=== PATIENT | male | born 1955 | race Caucasian/White ===

== ENCOUNTER 2020-05-18 04:57 | Emergency (ER) | payer OTHER, MEDICARE ==
[~2020-05-18] VITALS: Ht 185.4 cm; Wt 81.7 kg
[~2020-05-18 04:57] MED LIST: CYAN500 PO; CYCL10 PO; DILT120 PO; DIPH50 PO; FISH OIL 1,001000 MG PO; FOLI1 PO; LISI20 PO; MELATONIN5 M1 PO; PANT40 PO; QUET25 PO; Thiamine HCl100 MG PO; XARELTO20 MG PO
== END 2020-05-18 06:37 | disposition home or self-care (01) ==
LOC: ER 04:57
DX: Z48.01 Encounter for change or removal of surgical wound dressing (principal); S59.901A Unspecified injury of right elbow, initial encounter; I48.91 Unspecified atrial fibrillation; F32.9 Major depressive disorder, single episode, unspecified; Z91.011 Allergy to milk products; Z91.02 Food additives allergy status; Z88.8 Allergy status to other drugs, medicaments and biological substances; Z79.82 Long term (current) use of aspirin; Z79.899 Other long term (current) drug therapy; Z87.891 Personal history of nicotine dependence; X58.XXXA Exposure to other specified factors, initial encounter
CPT/HCPCS: 99284

== ENCOUNTER 2020-05-22 14:52 | Emergency (ER) | payer OTHER, MEDICARE ==
[~2020-05-22] VITALS: Ht 185.4 cm; Wt 81.7 kg
== END 2020-05-22 18:10 | disposition home or self-care (01) ==
LOC: ER 14:52
DX: F22 Delusional disorders (principal); F20.9 Schizophrenia, unspecified; I48.91 Unspecified atrial fibrillation; F32.9 Major depressive disorder, single episode, unspecified; I50.30 Unspecified diastolic (congestive) heart failure; Z79.01 Long term (current) use of anticoagulants; Z79.899 Other long term (current) drug therapy; Z91.011 Allergy to milk products; Z91.02 Food additives allergy status; Z88.6 Allergy status to analgesic agent; Z91.018 Allergy to other foods; Z88.8 Allergy status to other drugs, medicaments and biological substances; Z87.891 Personal history of nicotine dependence
CPT/HCPCS: 99284; Q3014

== ENCOUNTER 2021-03-14 08:55 | Observation (INO) | payer OTHER ==
[~2021-03-14] VITALS: Ht 188 cm; Wt 84.4 kg
[~2021-03-14 08:55] MED LIST changes: +CLOP75 PO; +LANOXIN125 MCG PO
[2021-03-14 09:24] LABS: BASOPHILS ABSOLUTE AUTO 0.05 K/mm3 (0.00-0.23); BASOPHILS PERCENT AUTO 1 % (0-2); EOSINOPHILS PERCENT AUTO 3 % (0-6); Hematocrit 44.2 % (37.0-53.0); Hemoglobin 14.7 g/dL (13.5-17.5); IMMATURE GRAN ABSOLUTE AUTO 0.03 K/mm3 (0.00-0.10); IMMATURE GRAN PERCENT AUTO 0 % (0-1); LYMPHOCYTES ABSOLUTE AUTO 1.38 K/mm3 (0.84-5.20); LYMPHOCYTES PERCENT AUTO 15 % (21-46); MONOCYTES ABSOLUTE AUTO 0.65 K/mm3 (0.16-1.47); MONOCYTES PERCENT AUTO 7 % (4-13); Mean Corpuscular HGB Conc 33.3 g/dL (31.5-36.5); Mean Corpuscular Volume 99 fL (80-100); Mean Platelet Volume 9.2 fL (9.1-12.4); NEUTROPHILS ABSOLUTE AUTO 6.65 K/mm3 (1.96-9.15); NEUTROPHILS PERCENT AUTO 73 % (41-73); Platelet Count 277 K/mm3 (150-400); RDW Coefficient Variation 13.2 % (11.7-14.2); RDW Standard Deviation 48.2 fL (35.1-46.3); Red Blood Cell Count 4.46 M/mm3 (4.30-5.90); White Blood Cell Count 9.06 K/mm3 (4.00-11.30)
[2021-03-14 09:45] LABS: Alanine Aminotransfer (ALT/SGP 40 U/L (12-78); Albumin, Blood 3.2 g/dL (3.4-5.0); Albumin/Globulin Ratio 0.9 (0.8-1.8); Alk Phos 82 U/L (50-136); Anion Gap 3 mmol/L (6-16); Aspartate Aminotrans (AST/SGOT 23 U/L (12-37); Bilirubin, Total 0.6 mg/dL (0.1-1.0); Blood Urea Nitrogen 10 mg/dL (8-24); Bun/Creatinine Ratio 10.9 (12.0-20.0); CO2, Blood 26 mmol/L (21-32); Calcium, Blood 8.8 mg/dL (8.5-10.1); Chloride, Blood 109 mmol/L (98-108); Creatinine, Blood 0.92 mg/dL (0.60-1.20); Ethanol (Alcohol), Blood, Med <3 mg/dL; Globulin, Blood 3.4 g/dL (2.2-4.0); Glomerular Filtration Rate >60 (60-); Glucose, Blood 105 mg/dL (70-99); Potassium, Blood 4.3 mmol/L (3.5-5.5); Sodium, Blood 138 mmol/L (136-145); Total Protein, Blood 6.6 g/dL (6.4-8.2); Troponin I <0.015 ng/mL (0.000-0.040)
[2021-03-14] MEDS ORDERED: ATOR80 PO (14:02)
[2021-03-14] MEDS ORDERED: IPRAT-ALBUT 0.5-3 ML NEB (14:02)
[2021-03-14] MEDS ORDERED: LANOXIN125 MCG PO (14:02)
[2021-03-14] MEDS ORDERED: DILTIAZEM 24HR240 M6 PO (14:03)
[2021-03-14] MEDS ORDERED: FOLI1 PO (14:03)
[2021-03-14] MEDS ORDERED: XARELTO20 MG PO (14:03)
[2021-03-14] MEDS ORDERED: Hair, Skin & N1 EACH PO (14:03)
[2021-03-14] MEDS ORDERED: B-1100 M1 PO (14:04)
[2021-03-14] MEDS ORDERED: Vitamin B Comple1 EA PO (14:04)
[2021-03-14 15:19] LABS: SARS-Cov-2 (COVID-19) PCR, MMC NEGATIVE (NEGATIVE)
--- NOTE | 2021-03-14 15:24 | NUR ---
RECEIED REPORT FROM ANKIT WIGGINS @ 4034. PATIENT TO BE TRANSFERED TO ROOM 357.
[2021-03-14 16:00] LABS: U Amphetamine Screen Not Detected; U Barbituate Screen Not Detected; U Benzodiazapine Screen Not Detected; U Buprenorphine Screen Not Detected; U Cannabinoids Screen DETECTED; U Cocaine Screen Not Detected; U Methadone Screen Not Detected; U Methamphetamine Screen Not Detected; U Opiates Screen Not Detected; U Oxycodone Screen Not Detected; U Phencyclidine Screen Not Detected; U Propoxyphene Screen Not Detected
--- NOTE | 2021-03-14 16:00 | NUR ---
Echocardiogram completed.
--- NOTE | 2021-03-14 18:18 | NUR ---
PATIENT ARRIVED TO ROOM 357 AND WAS TRANSFERED TO HOSPITAL BED BY THE ASSIST OF FOUR HOSPITAL STAFF MEMBERS. PATIENT IS VERY IRRITABLE AND DOES NOT LIKE TO BE BOTHERED. CAME UP FROM THE ER WITH 10F PEDIATRIC SHAW CATHETER IN PLACE; SEEMS TO BE SOME OBSTRUCTION PREVENTING THE ABILITY TO PLACE AN ADULT CATHETER. PATIENT C/O PAIN TO PENIS WITH THE SLIGHTEST OF TOUCH, EVEN THE TOUCH OF A BLANKET BEING PLACED ON HIM. COMPLETED ADMISSION ASSESSMENT AND MED REC WITH THE ASSISTANCE OF PATIENT. PATIENT STATES HE DOES NOT HAVE A HOME AT THIS TIME. IV FLUIDS RUNNING PER EMAR.
[2021-03-15 04:43] LABS: BASOPHILS ABSOLUTE AUTO 0.07 K/mm3 (0.00-0.23); BASOPHILS PERCENT AUTO 1 % (0-2); EOSINOPHILS ABSOLUTE AUTO 0.22 K/mm3 (0.00-0.68); EOSINOPHILS PERCENT AUTO 2 % (0-6); Hematocrit 45.5 % (37.0-53.0); Hemoglobin 15.1 g/dL (13.5-17.5); IMMATURE GRAN ABSOLUTE AUTO 0.05 K/mm3 (0.00-0.10); IMMATURE GRAN PERCENT AUTO 1 % (0-1); LYMPHOCYTES ABSOLUTE AUTO 1.51 K/mm3 (0.84-5.20); LYMPHOCYTES PERCENT AUTO 16 % (21-46); MONOCYTES ABSOLUTE AUTO 0.66 K/mm3 (0.16-1.47); MONOCYTES PERCENT AUTO 7 % (4-13); Mean Corpuscular HGB 32.2 pg (26.0-34.0); Mean Corpuscular HGB Conc 33.2 g/dL (31.5-36.5); Mean Corpuscular Volume 97 fL (80-100); Mean Platelet Volume 9.4 fL (9.1-12.4); NEUTROPHILS ABSOLUTE AUTO 7.14 K/mm3 (1.96-9.15); NEUTROPHILS PERCENT AUTO 74 % (41-73); Platelet Count 271 K/mm3 (150-400); RDW Coefficient Variation 13.3 % (11.7-14.2); RDW Standard Deviation 47.8 fL (35.1-46.3); Red Blood Cell Count 4.69 M/mm3 (4.30-5.90); White Blood Cell Count 9.65 K/mm3 (4.00-11.30)
[2021-03-15 05:11] LABS: Alanine Aminotransfer (ALT/SGP 30 U/L (12-78); Albumin, Blood 2.9 g/dL (3.4-5.0); Albumin/Globulin Ratio 0.9 (0.8-1.8); Alk Phos 88 U/L (50-136); Anion Gap 4 mmol/L (6-16); Aspartate Aminotrans (AST/SGOT 15 U/L (12-37); Bilirubin, Total 0.7 mg/dL (0.1-1.0); Blood Urea Nitrogen 11 mg/dL (8-24); Bun/Creatinine Ratio 12.8 (12.0-20.0); CO2, Blood 25 mmol/L (21-32); Calcium, Blood 8.5 mg/dL (8.5-10.1); Chloride, Blood 111 mmol/L (98-108); Creatinine, Blood 0.86 mg/dL (0.60-1.20); Globulin, Blood 3.4 g/dL (2.2-4.0); Glomerular Filtration Rate >60 (60-); Glucose, Blood 76 mg/dL (70-99); Magnesium, Blood 1.9 mg/dL (1.6-2.4); Potassium, Blood 4.1 mmol/L (3.5-5.5); Sodium, Blood 140 mmol/L (136-145); Total Protein, Blood 6.3 g/dL (6.4-8.2)
--- NOTE | 2021-03-15 05:33 | NUR ---
END OF SHIFT REPORT: Pt still complaining of weakness, especially in BLE. He states that he cannot move his legs. pt can move arms and can wiggle toes. he has feeling in BLE and BUE. Urinary catheter draining well. pt complaining of burning pain under his penis area, likely from the britton insertion attempts. Pt says he does not want any pain medicine. heat alternative therapy provided, pt tolerated for about 2 hours and asks totake off. pt states that his bladder feels full. this nurse bladder scanned him and there was 20ml in there. pt resting at this time.
--- NOTE | 2021-03-15 12:52 | NUR ---
BUILDING ARCHITECTURAL DESIGNER CALLED AND REPORTED PT HEART RATE AFIB IN THE 150'S. PO CARDIZEM AND DIGOXIN GIVEN AT 1208. PT CURRENTLY SITTING UP IN CHAIR EATING LUNCH, IN NO ACUTE DISTRESS. CALLED AND SPOKE WITH DR BENAVIDES AND ORDERED RECEIVED FOR CARDIZEM 10 MG IV X1 NOW.
--- NOTE | 2021-03-15 12:59 | NUR ---
WENT IN TO ADMINISTER IV CARDIZEM, [facility] REPORTS RATE NOW AT 110. WILL HOLD IV CARDIZEM AT THIS TIME AND CONTINUE TO MONITOR.
--- NOTE | 2021-03-15 15:59 | NUR ---
0842 FINISH MIXER NOTIFIED RN THAT PT WAS C/O CHEST PAIN. WENT IN THE ROOM AND PT HOLDING CHEST WITH GRIMACE DESCRIBING MIDSTERNAL CRUSHING CHEST PAIN. STATES IT HAPPENED RIGHT AFTER SPEECH GAVE HIM FOOD AND HE LAID DOWN. ELEVATED HOB. HEARD EXP WHEEZE L MID LUNG FIELD. CALLED DR BENAVIDES TO NOTIFY. OBTAINED EKG, AND TROPONIN ORDERED. MEDICATED WITH PROTONIX AND TUMS. VSS, SATS 95% ROOM AIR. STATES INCREASED PAIN WITH DEEP INSP. 20 MIN AFTER PROTONIX, PT IS JOVIAL AND STATES PAIN IS HALF WHAT IT USED TO BE. AT 0915 PT STATES PAIN IS RESOLVED. TROP. NEGATIVE. WILL CONT TO MERCEDES.
--- NOTE | 2021-03-15 18:56 | NUR ---
SUMMARY- PT ALERT TO SELF, PLACE CIRCUMSTANCE. NEURO IMPROVED, VEE ZAMBRANO, UP IN CHAIR MOST OF THE DAY. STEADY GAIT, BUT STATES HE HAS A HARD TIME "TELLING WHICH WAY IS UP; DISORIENTED". HAS HAD NO ADDITIONAL CHEST PAIN TODAY. TOLERATING FOOD AND FLUIDS. VALERIA ARTHUR, VOIDED 350 AROUND 1730. WILL REPORT TO DAWNA WIGGINS.
--- NOTE | 2021-03-16 02:30 | NUR ---
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 Room air PT denies chest pain or acute distress. 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 Homeless PT states was [employer]. Says [facility] unable to provide housing assist for several years. 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 PT has been noncompliant with RX off meds for his AFIB. He refuses IV fluid NS scheduled at 100 ml hr. He threatens to pull his IV. 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 He sites academic excellence with HS grad at age 9 & Gov employment age 14. Says multi million dollar estate from he encouraged pending & in probate. PT has tele AFIB rate 77. Full code status, PT has hx of cardiac ablation & stent. Echo shows EF 55 to 60 %. carotid duplex done. MRI of brain shows no acute recent event. PT has MRI of cervical spine due to gen weakness. Multilevel severe deg disease with spinal canal stenosis & multilevel foraminal stenosis. HX of multiple medication allergies. Alert to self surrounding PT moving all extremities baseline RT le weakness, & current LT UE neuropathy. Has PT/ OT/ST ordered. PT says baseline he has inability to tolearate head of bed up. No attempts to get out of bed unassisted. No current complaints, Will make SW referral for homeless [place] with mental problems with hx of tx at [facility] for ongoing problems.
[2021-03-16 05:03] LABS: CHOL/HDL RATIO 5.8; Cholesterol 138 mg/dL (50-200); HDL Cholesterol 24 mg/dL (>39); LDL/HDL RATIO 3.9; Low Density Lipoprotein Chol 94 mg/dL (0-110); Triglycerides 99 mg/dL (30-160); Very Low Density Lipoprot Chol 19 mg/dL (6-32)
[2021-03-16 08:37] LABS: Hematocrit 41.5 % (37.0-53.0); Hemoglobin 13.9 g/dL (13.5-17.5)
[2021-03-16 09:15] LABS: Albumin, Blood 2.6 g/dL (3.4-5.0); Anion Gap 7 mmol/L (6-16); Blood Urea Nitrogen 12 mg/dL (8-24); Bun/Creatinine Ratio 14.7 (12.0-20.0); CO2, Blood 23 mmol/L (21-32); Calcium, Blood 8.5 mg/dL (8.5-10.1); Chloride, Blood 110 mmol/L (98-108); Creatinine, Blood 0.82 mg/dL (0.60-1.20); Glomerular Filtration Rate >60 (60-); Glucose, Blood 123 mg/dL (70-99); Phosphorus, Blood 3.3 mg/dL (2.5-4.9); Potassium, Blood 3.7 mmol/L (3.5-5.5); Sodium, Blood 140 mmol/L (136-145)
[2021-03-16] MEDS ORDERED: TAMS.4ER PO (11:31)
[2021-03-16] MEDS ORDERED: PANT20 PO (11:33)
--- NOTE | 2021-03-16 12:32 | NUR ---
MR PRAVIN CHAVEZ IS ALERT ORIENTED X 4,MR COSTELLO DENIES PAIN,N/V AND SOB.MR COSTELLO IS DISCHARGE,MEDS WAS FAXED TO THE VET,BUT MR COSTELLO REFUSED TO LEAVE, SECURITY WAS CALLED TO HELP SMOOTH THE ISSUES BUT MR COSTELLO STILL REFUSED TO LEAVE AND REFUSED TO COORPORATE WITH SECURITY, MR COSTELLO CALLED 911,AN OFFICER ARRIVED 20 MINUTES LATER, PT ONLY SPOKE TO THE OFFICER, PT WAS PRESENTED WITH DISCHARGE PAPER AND DISCHARGE SUMMARY AND PT REFUSED TO SIGN THE DISCHARGE PAPER, PT BEING ESCORTED OUT BY THE OFFICER AND SECURITY.
== END 2021-03-16 12:24 | disposition home health service (06) ==
LOC: ER 08:55 → MEDS 08:56
PROVIDERS: Emergency Medicine; Internal Medicine; Nurse Practitioner Acute Care; ADMIT Internal Medicine
DX: R53.1 Weakness (principal); I48.20 Chronic atrial fibrillation, unspecified; R33.9 Retention of urine, unspecified; F20.9 Schizophrenia, unspecified; F84.0 Autistic disorder; I25.10 Atherosclerotic heart disease of native coronary artery without angina pectoris; I25.2 Old myocardial infarction; I73.9 Peripheral vascular disease, unspecified; I70.8 Atherosclerosis of other arteries; I77.9 Disorder of arteries and arterioles, unspecified; I10 Essential (primary) hypertension; K21.9 Gastro-esophageal reflux disease without esophagitis; F17.210 Nicotine dependence, cigarettes, uncomplicated; M48.02 Spinal stenosis, cervical region; Z79.01 Long term (current) use of anticoagulants; Z91.14 Patient's other noncompliance with medication regimen; Z91.011 Allergy to milk products; Z91.018 Allergy to other foods; Z91.013 Allergy to seafood; Z88.8 Allergy status to other drugs, medicaments and biological substances; Z59.0 Homelessness; Z95.5 Presence of coronary angioplasty implant and graft; Z86.73 Personal history of transient ischemic attack (TIA), and cerebral infarction without residual deficits; Z20.822 Contact with and (suspected) exposure to COVID-19
CPT/HCPCS: 36415; 51702; 70450; 70551; 72156; 76770; 80053; 80061; 80069; 82550; 83735; 83880; 84484; 85014; 85018; 85025; 92610; 93005; 93010; 93306; 93880; 96372; 96374; 97163; 97166; 97530; 97535; 99285-25; A9270; A9579; C9113; G0378; G0480; J1650; J7030; U0004

== ENCOUNTER 2022-08-23 18:10 | Emergency (ER) | payer OTHER ==
[~2022-08-23] VITALS: Ht 185.4 cm; Wt 86.2 kg
[~2022-08-23 18:10] MED LIST changes: +ATOR80 PO; +B-1100 M1 PO; +DILTIAZEM 24HR240 M6 PO; +Hair, Skin & N1 EACH PO; +IPRAT-ALBUT 0.5-3 ML NEB; +PANT20 PO; +TAMS.4ER PO; +Vitamin B Comple1 EA PO
[2022-08-23 18:35] LABS: BASOPHILS ABSOLUTE AUTO 0.05 K/mm3 (0.00-0.23); BASOPHILS PERCENT AUTO 1 % (0-2); EOSINOPHILS ABSOLUTE AUTO 0.22 K/mm3 (0.00-0.68); EOSINOPHILS PERCENT AUTO 3 % (0-6); Hemoglobin 15.1 g/dL (13.5-17.5); IMMATURE GRAN ABSOLUTE AUTO 0.02 K/mm3 (0.00-0.10); IMMATURE GRAN PERCENT AUTO 0 % (0-1); LYMPHOCYTES ABSOLUTE AUTO 2.28 K/mm3 (0.84-5.20); LYMPHOCYTES PERCENT AUTO 29 % (21-46); MONOCYTES ABSOLUTE AUTO 0.49 K/mm3 (0.16-1.47); MONOCYTES PERCENT AUTO 6 % (4-13); Mean Corpuscular HGB 32.5 pg (26.0-34.0); Mean Corpuscular HGB Conc 34.3 g/dL (31.5-36.5); Mean Corpuscular Volume 95 fL (80-100); Mean Platelet Volume 9.1 fL (9.1-12.4); NEUTROPHILS ABSOLUTE AUTO 4.83 K/mm3 (1.96-9.15); NEUTROPHILS PERCENT AUTO 61 % (41-73); Platelet Count 275 K/mm3 (150-400); RDW Coefficient Variation 12.7 % (11.7-14.2); RDW Standard Deviation 44.5 fL (35.1-46.3); Red Blood Cell Count 4.64 M/mm3 (4.30-5.90); White Blood Cell Count 7.89 K/mm3 (4.00-11.30)
[2022-08-23 19:03] LABS: Albumin, Blood 3.6 g/dL (3.4-5.0); Albumin/Globulin Ratio 0.9 (0.8-1.8); Bilirubin, Total 0.3 mg/dL (0.1-1.0); Calcium, Blood 9.5 mg/dL (8.5-10.1); Creatinine, Blood 0.82 mg/dL (0.60-1.20); Globulin, Blood 3.9 g/dL (2.2-4.0); Potassium, Blood 4.5 mmol/L (3.5-5.5); Total Protein, Blood 7.5 g/dL (6.4-8.2)
== END 2022-08-23 20:10 | disposition home or self-care (01) ==
LOC: ER 18:10
PROVIDERS: Emergency Medicine
DX: K64.4 Residual hemorrhoidal skin tags (principal); I48.91 Unspecified atrial fibrillation; I10 Essential (primary) hypertension; F84.0 Autistic disorder; Z91.011 Allergy to milk products; Z91.013 Allergy to seafood; Z88.8 Allergy status to other drugs, medicaments and biological substances; Z91.018 Allergy to other foods; Z79.899 Other long term (current) drug therapy; Z79.01 Long term (current) use of anticoagulants
CPT/HCPCS: 36415; 80053; 85025; 99283

== ENCOUNTER 2022-11-24 15:38 | Emergency (ER) | payer OTHER ==
[~2022-11-24] VITALS: Ht 185.4 cm; Wt 86.2 kg
[2022-11-24 15:59] LABS: BASOPHILS ABSOLUTE AUTO 0.05 K/mm3 (0.00-0.23); BASOPHILS PERCENT AUTO 1 % (0-2); EOSINOPHILS ABSOLUTE AUTO 0.13 K/mm3 (0.00-0.68); EOSINOPHILS PERCENT AUTO 2 % (0-6); Hematocrit 44.3 % (37.0-53.0); Hemoglobin 14.9 g/dL (13.5-17.5); IMMATURE GRAN ABSOLUTE AUTO 0.02 K/mm3 (0.00-0.10); IMMATURE GRAN PERCENT AUTO 0 % (0-1); LYMPHOCYTES ABSOLUTE AUTO 1.68 K/mm3 (0.84-5.20); LYMPHOCYTES PERCENT AUTO 31 % (21-46); MONOCYTES ABSOLUTE AUTO 0.46 K/mm3 (0.16-1.47); MONOCYTES PERCENT AUTO 9 % (4-13); Mean Corpuscular HGB Conc 33.6 g/dL (31.5-36.5); Mean Corpuscular Volume 95 fL (80-100); Mean Platelet Volume 9.4 fL (9.1-12.4); NEUTROPHILS ABSOLUTE AUTO 3.05 K/mm3 (1.96-9.15); NEUTROPHILS PERCENT AUTO 57 % (41-73); Platelet Count 217 K/mm3 (150-400); RDW Coefficient Variation 13.9 % (11.7-14.2); RDW Standard Deviation 48.9 fL (35.1-46.3); Red Blood Cell Count 4.66 M/mm3 (4.30-5.90); White Blood Cell Count 5.39 K/mm3 (4.00-11.30)
[2022-11-24 16:19] LABS: Albumin, Blood 3.7 g/dL (3.4-5.0); Albumin/Globulin Ratio 0.9 (0.8-1.8); Bilirubin, Total 0.6 mg/dL (0.1-1.0); Bun/Creatinine Ratio 20.4 (12.0-20.0); Calcium, Blood 9.1 mg/dL (8.5-10.1); Creatinine, Blood 0.78 mg/dL (0.60-1.20); Potassium, Blood 4.2 mmol/L (3.5-5.5); Total Protein, Blood 7.7 g/dL (6.4-8.2)
[2022-11-24 18:25] LABS: Digoxin (Lanoxin) 0.53 ug/mL (0.80-2.00)
[2022-11-24 18:45] VITALS: BP 151/96
== END 2022-11-24 19:17 | disposition home or self-care (01) ==
LOC: ER 15:38
PROVIDERS: Emergency Medicine; Physician Assistant
DX: R42 Dizziness and giddiness (principal); I10 Essential (primary) hypertension; Z91.013 Allergy to seafood; Z91.011 Allergy to milk products; Z91.018 Allergy to other foods; Z88.6 Allergy status to analgesic agent; Z88.8 Allergy status to other drugs, medicaments and biological substances; Z79.01 Long term (current) use of anticoagulants
CPT/HCPCS: 71046; 80053; 80162; 83690; 83880; 84443; 84484; 85025; A9270

== ENCOUNTER 2023-06-06 11:47 | Emergency (ER) | payer OTHER, MEDICARE ==
[~2023-06-06] VITALS: Ht 185.4 cm; Wt 81.7 kg
[2023-06-06 12:49] LABS: BASOPHILS ABSOLUTE AUTO 0.04 K/mm3 (0.00-0.23); BASOPHILS PERCENT AUTO 0 % (0-2); EOSINOPHILS ABSOLUTE AUTO 0.03 K/mm3 (0.00-0.68); EOSINOPHILS PERCENT AUTO 0 % (0-6); Hematocrit 49.5 % (37.0-53.0); Hemoglobin 16.6 g/dL (13.5-17.5); IMMATURE GRAN ABSOLUTE AUTO 0.05 K/mm3 (0.00-0.10); IMMATURE GRAN PERCENT AUTO 0 % (0-1); LYMPHOCYTES ABSOLUTE AUTO 1.07 K/mm3 (0.84-5.20); LYMPHOCYTES PERCENT AUTO 8 % (21-46); MONOCYTES ABSOLUTE AUTO 0.54 K/mm3 (0.16-1.47); MONOCYTES PERCENT AUTO 4 % (4-13); Mean Corpuscular HGB 31.6 pg (26.0-34.0); Mean Corpuscular HGB Conc 33.5 g/dL (31.5-36.5); Mean Corpuscular Volume 94 fL (80-100); Mean Platelet Volume 9.2 fL (9.1-12.4); NEUTROPHILS ABSOLUTE AUTO 11.93 K/mm3 (1.96-9.15); NEUTROPHILS PERCENT AUTO 87 % (41-73); Platelet Count 246 K/mm3 (150-400); RDW Coefficient Variation 13.2 % (11.7-14.2); RDW Standard Deviation 45.7 fL (35.1-46.3); Red Blood Cell Count 5.25 M/mm3 (4.30-5.90); White Blood Cell Count 13.66 K/mm3 (4.00-11.30)
[2023-06-06 13:03] LABS: Albumin, Blood 3.9 g/dL (3.4-5.0); Albumin/Globulin Ratio 0.9 (0.8-1.8); Bilirubin, Total 0.8 mg/dL (0.1-1.0); Bun/Creatinine Ratio 15.8 (12.0-20.0); Calcium, Blood 9.4 mg/dL (8.5-10.1); Creatinine, Blood 0.76 mg/dL (0.60-1.20); Globulin, Blood 4.5 g/dL (2.2-4.0); Potassium, Blood 3.9 mmol/L (3.5-5.5); Total Protein, Blood 8.4 g/dL (6.4-8.2)
[2023-06-06] MEDS ORDERED: DIGOX125 MC1 PO (15:21)
[2023-06-06 18:56] LABS: Magnesium, Blood 1.7 mg/dL (1.6-2.4)
[2023-06-06 19:03] LABS: Digoxin (Lanoxin) 0.55 ug/mL (0.80-2.00)
[2023-06-06 20:18] LABS: U Amphetamine Screen Not Detected; U Barbituate Screen Not Detected; U Benzodiazapine Screen Not Detected; U Buprenorphine Screen Not Detected; U Cannabinoids Screen DETECTED; U Cocaine Screen Not Detected; U Methadone Screen Not Detected; U Methamphetamine Screen Not Detected; U Opiates Screen Not Detected; U Oxycodone Screen Not Detected; U Phencyclidine Screen Not Detected
[2023-06-06 20:35] VITALS: BP 131/95
== END 2023-06-06 20:37 | disposition home or self-care (01) ==
LOC: ER 11:47
PROVIDERS: Physician Assistant; Student in an Organized Health Care Education/Training Program
DX: S00.81XA Abrasion of other part of head, initial encounter (principal); S92.515A Nondisplaced fracture of proximal phalanx of left lesser toe(s), initial encounter for closed fracture; M54.2 Cervicalgia; I48.91 Unspecified atrial fibrillation; I10 Essential (primary) hypertension; Z91.013 Allergy to seafood; Z91.011 Allergy to milk products; Z91.018 Allergy to other foods; Z88.6 Allergy status to analgesic agent; Z88.8 Allergy status to other drugs, medicaments and biological substances; Z79.01 Long term (current) use of anticoagulants; Z79.899 Other long term (current) drug therapy
CPT/HCPCS: 70450; 72125; 73630; 80053; 80162; 83690; 83735; 83880; 84484; 85025; 93005; 93010; 99284-25

== ENCOUNTER 2024-01-15 08:30 | Emergency (ER) | payer OTHER ==
[~2024-01-15] VITALS: Ht 185.4 cm; Wt 81.7 kg
[~2024-01-15 08:30] MED LIST changes: +ACET500 PO; +DIGOX125 MC1 PO; +OXYC5 PO
[2024-01-15 09:21] LABS: BASOPHILS ABSOLUTE AUTO 0.08 K/mm3 (0.00-0.23); BASOPHILS PERCENT AUTO 1 % (0-2); EOSINOPHILS ABSOLUTE AUTO 0.29 K/mm3 (0.00-0.68); EOSINOPHILS PERCENT AUTO 3 % (0-6); Hematocrit 52.2 % (37.0-53.0); Hemoglobin 17.1 g/dL (13.5-17.5); IMMATURE GRAN ABSOLUTE AUTO 0.05 K/mm3 (0.00-0.10); IMMATURE GRAN PERCENT AUTO 1 % (0-1); LYMPHOCYTES ABSOLUTE AUTO 2.04 K/mm3 (0.84-5.20); LYMPHOCYTES PERCENT AUTO 22 % (21-46); MONOCYTES ABSOLUTE AUTO 0.79 K/mm3 (0.16-1.47); MONOCYTES PERCENT AUTO 8 % (4-13); Mean Corpuscular HGB 31.3 pg (26.0-34.0); Mean Corpuscular HGB Conc 32.8 g/dL (31.5-36.5); Mean Corpuscular Volume 96 fL (80-100); Mean Platelet Volume 8.6 fL (9.1-12.4); NEUTROPHILS PERCENT AUTO 66 % (41-73); Platelet Count 276 K/mm3 (150-400); RDW Coefficient Variation 13.6 % (11.7-14.2); RDW Standard Deviation 48.1 fL (35.1-46.3); Red Blood Cell Count 5.46 M/mm3 (4.30-5.90); White Blood Cell Count 9.45 K/mm3 (4.00-11.30)
[2024-01-15 09:47] LABS: Albumin, Blood 3.9 g/dL (3.4-5.0); Albumin/Globulin Ratio 0.9 (0.8-1.8); Bilirubin, Total 0.9 mg/dL (0.1-1.0); Bun/Creatinine Ratio 17.6 (12.0-20.0); Calcium, Blood 9.4 mg/dL (8.5-10.1); Creatinine, Blood 1.08 mg/dL (0.60-1.20); Globulin, Blood 4.5 g/dL (2.2-4.0); Potassium, Blood 4.2 mmol/L (3.5-5.5); Total Protein, Blood 8.4 g/dL (6.4-8.2)
[2024-01-15 10:44] VITALS: BP 136/95
== END 2024-01-15 10:44 | disposition home or self-care (01) ==
LOC: ER 08:30
PROVIDERS: Emergency Medicine
DX: K62.5 Hemorrhage of anus and rectum (principal); I48.91 Unspecified atrial fibrillation; Z86.73 Personal history of transient ischemic attack (TIA), and cerebral infarction without residual deficits; Z87.891 Personal history of nicotine dependence; Z91.011 Allergy to milk products; Z91.018 Allergy to other foods; Z88.6 Allergy status to analgesic agent; Z91.013 Allergy to seafood; Z88.5 Allergy status to narcotic agent; Z79.899 Other long term (current) drug therapy
CPT/HCPCS: 80053; 85025; 99283-25

== ENCOUNTER 2024-01-18 01:19 | Emergency (ER) | payer OTHER ==
[~2024-01-18] VITALS: Ht 185.4 cm; Wt 81.7 kg
[2024-01-18 01:51] VITALS: BP 162/86
== END 2024-01-18 05:35 | disposition home or self-care (01) ==
LOC: ER 01:19
DX: S90.31XA Contusion of right foot, initial encounter (principal); X58.XXXA Exposure to other specified factors, initial encounter; Z91.013 Allergy to seafood; Z91.011 Allergy to milk products; Z91.048 Other nonmedicinal substance allergy status; Z79.899 Other long term (current) drug therapy; I48.91 Unspecified atrial fibrillation; I10 Essential (primary) hypertension; J44.9 Chronic obstructive pulmonary disease, unspecified
CPT/HCPCS: 73630; 99283-25

== ENCOUNTER 2024-02-09 02:04 | Emergency (ER) | payer OTHER ==
[~2024-02-09] VITALS: Ht 185.4 cm; Wt 104.3 kg
[2024-02-09 02:32] LABS: BASOPHILS ABSOLUTE AUTO 0.08 K/mm3 (0.00-0.23); BASOPHILS PERCENT AUTO 1 % (0-2); EOSINOPHILS ABSOLUTE AUTO 0.35 K/mm3 (0.00-0.68); EOSINOPHILS PERCENT AUTO 3 % (0-6); Hematocrit 44.2 % (37.0-53.0); Hemoglobin 14.7 g/dL (13.5-17.5); IMMATURE GRAN ABSOLUTE AUTO 0.04 K/mm3 (0.00-0.10); IMMATURE GRAN PERCENT AUTO 0 % (0-1); LYMPHOCYTES ABSOLUTE AUTO 2.04 K/mm3 (0.84-5.20); LYMPHOCYTES PERCENT AUTO 19 % (21-46); MONOCYTES ABSOLUTE AUTO 0.68 K/mm3 (0.16-1.47); MONOCYTES PERCENT AUTO 6 % (4-13); Mean Corpuscular HGB Conc 33.3 g/dL (31.5-36.5); Mean Corpuscular Volume 96 fL (80-100); Mean Platelet Volume 9.1 fL (9.1-12.4); NEUTROPHILS ABSOLUTE AUTO 7.43 K/mm3 (1.96-9.15); NEUTROPHILS PERCENT AUTO 70 % (41-73); Platelet Count 232 K/mm3 (150-400); RDW Standard Deviation 49.4 fL (35.1-46.3); Red Blood Cell Count 4.59 M/mm3 (4.30-5.90); White Blood Cell Count 10.62 K/mm3 (4.00-11.30)
[2024-02-09 02:51] LABS: Albumin, Blood 3.4 g/dL (3.4-5.0); Albumin/Globulin Ratio 0.8 (0.8-1.8); Bilirubin, Total 0.2 mg/dL (0.1-1.0); Bun/Creatinine Ratio 20.1 (12.0-20.0); Calcium, Blood 8.7 mg/dL (8.5-10.1); Creatinine, Blood 0.9 mg/dL (0.60-1.20); Potassium, Blood 3.9 mmol/L (3.5-5.5); Total Protein, Blood 7.4 g/dL (6.4-8.2)
[2024-02-09 05:08] VITALS: BP 140/100
== END 2024-02-09 05:08 | disposition home or self-care (01) ==
LOC: ER 02:04
PROVIDERS: Emergency Medicine
DX: R55 Syncope and collapse (principal); I25.2 Old myocardial infarction; J44.9 Chronic obstructive pulmonary disease, unspecified; I10 Essential (primary) hypertension; F17.200 Nicotine dependence, unspecified, uncomplicated; Z86.79 Personal history of other diseases of the circulatory system; Z86.73 Personal history of transient ischemic attack (TIA), and cerebral infarction without residual deficits; Z79.899 Other long term (current) drug therapy; Z88.5 Allergy status to narcotic agent; Z91.018 Allergy to other foods; Z88.6 Allergy status to analgesic agent; Z88.1 Allergy status to other antibiotic agents; Z91.011 Allergy to milk products; Z91.013 Allergy to seafood; Z88.8 Allergy status to other drugs, medicaments and biological substances
CPT/HCPCS: 70450; 80053; 84484; 85025; 93005; 93010; 99285-25